=== PATIENT | male | born 1980 | race Two or more races ===

== ENCOUNTER 2022-09-14 21:48 | Emergency (ER) | payer OTHER ==
[~2022-09-14] VITALS: Ht 180.3 cm; Wt 82.1 kg
== END 2022-09-15 13:24 | disposition home or self-care (01) ==
LOC: ER 21:48
DX: R10.33 Periumbilical pain (principal); J45.901 Unspecified asthma with (acute) exacerbation; R11.10 Vomiting, unspecified

== ENCOUNTER 2022-12-16 19:14 | Emergency (ER) | payer OTHER ==
[~2022-12-16] VITALS: Ht 180.3 cm; Wt 89.8 kg
== END 2022-12-17 07:47 | disposition home or self-care (01) ==
LOC: ER 19:14
PROVIDERS: General Practice
DX: K29.70 Gastritis, unspecified, without bleeding (principal); M54.50 Low back pain, unspecified; F41.9 Anxiety disorder, unspecified